=== PATIENT | female | born 1990 | race Caucasian/White ===

== ENCOUNTER 2018-07-25 19:46 | Emergency (ER) | payer OTHER ==
[~2018-07-25] VITALS: Ht 152.4 cm; Wt 57.7 kg
[2018-07-25] MEDS ORDERED: AUGMENTIN 875 MG TAB PO ONE (21:15)
[2018-07-25] MEDS ORDERED: ACETAMINOPHEN TAB 650MG DOSE (2X325MG) PO ONE (21:15)
[2018-07-25] MEDS ORDERED: LIDOCAINE 2% W/EPIN INJ 20ML **PRES FREE INJ ONE (22:00)
[2018-07-25] MEDS ORDERED: AUGM875T28 PO (22:26)
[2018-07-25 22:57] VITALS: BP 107/66
[2018-07-25] MEDS ORDERED: BACITRACIN OINT 30GM TOP STA (23:06)
== END 2018-07-25 23:17 | disposition home or self-care (01) ==
LOC: M ED 19:46
DX: S61.412A Laceration without foreign body of left hand, initial encounter (principal); W54.0XXA Bitten by dog, initial encounter